=== PATIENT | male | born 1975 | race Caucasian/White ===

== ENCOUNTER 2017-01-19 15:38 | Emergency (ER) | payer MEDICARE, MEDICAID ==
[~2017-01-19] VITALS: Ht 170.2 cm; Wt 84.0 kg
[~2017-01-19 15:38] MED LIST: ALBUTEROL; FLUT1DIS3 IH
[2017-01-19 18:02] VITALS: BP 120/82
== END 2017-01-19 19:15 | disposition home or self-care (01) ==
LOC: ER 18:25
DX: S61.210A Laceration without foreign body of right index finger without damage to nail, initial encounter (principal); W26.0XXA Contact with knife, initial encounter; Y93.G1 Activity, food preparation and clean up; Y92.090 Kitchen in other non-institutional residence as the place of occurrence of the external cause
CPT/HCPCS: 73130; 99284

== ENCOUNTER 2021-03-30 15:07 | Emergency (ER) | payer MEDICARE, MEDICAID ==
[~2021-03-30] VITALS: Ht 172.7 cm; Wt 91.0 kg
[2021-03-30 16:48] LABS: BASOPHILS % 1.5 % (0.0-2.0); EOSINOPHILS % 6.2 % (0.0-5.0); HEMATOCRIT. 47.5 % (42.0-52.0); HEMOGLOBIN. 15.7 g/dL (14.0-18.0); LYMPHOCYTES % 25.8 % (20.0-50.0); MEAN CORPUSCULAR HEMOGLOBIN 28.7 pg (28.0-32.0); MEAN CORPUSCULAR VOLUME 87.2 fL (80.0-94.0); MEAN PLATELET VOLUME 8.6 fl (7.4-10.4); MONOCYTES % 8.3 % (2.0-8.0); NEUTROPHILS % 58.2 % (40.0-76.0); PLATELET 312 x1000/uL (130-400); RED BLOOD CELL COUNT 5.45 mill/uL (4.7-6.1); RED CELL DISTRIBUTION WIDTH 14.3 % (11.6-14.6)
[2021-03-30 16:50] LABS: CHLORIDE 107 mEq/L (98-107)
[2021-03-30] MEDS ORDERED: LISINOPRIL 5MG TABLET PO ONE (18:45)
[2021-03-30] MEDS ORDERED: LISI-186 MT (20:12)
[2021-03-31] MEDS ORDERED: LISINOPRIL 5MG TABLET PO ONE (09:45)
[2021-03-31] MEDS ORDERED: ACETAMINOPHEN 325MG TABLET PO ONE (14:15)
[2021-03-31 14:37] VITALS: BP 140/99
== END 2021-03-31 15:08 | disposition home or self-care (01) ==
LOC: ER 15:07
DX: I10 Essential (primary) hypertension (principal); H54.7 Unspecified visual loss; G40.909 Epilepsy, unspecified, not intractable, without status epilepticus; J45.909 Unspecified asthma, uncomplicated; Z87.820 Personal history of traumatic brain injury
CPT/HCPCS: 36415; 80053; 85025; 99285

== ENCOUNTER 2021-04-06 14:15 | Emergency (ER) | payer MEDICARE, MEDICAID ==
[~2021-04-06] VITALS: Ht 172.7 cm; Wt 78.0 kg
[~2021-04-06 14:15] MED LIST changes: +LISI-186 MT
[2021-04-06] MEDS ORDERED: ACETAMINOPHEN 325MG TABLET PO STA (14:39)
[2021-04-06] MEDS ORDERED: SODIUM CHLORIDE 0.9% 1,000 ML IV ONE (14:45)
[2021-04-06 15:25] LABS: BASOPHILS % 2.1 % (0.0-2.0); EOSINOPHILS % 5.2 % (0.0-5.0); HEMATOCRIT. 43.3 % (42.0-52.0); HEMOGLOBIN. 14.1 g/dL (14.0-18.0); LYMPHOCYTES % 22.4 % (20.0-50.0); MEAN CORPUSCULAR HEMOGLOBIN 28.3 pg (28.0-32.0); MEAN CORPUSCULAR VOLUME 86.5 fL (80.0-94.0); MEAN PLATELET VOLUME 8.9 fl (7.4-10.4); MONOCYTES % 11.8 % (2.0-8.0); NEUTROPHILS % 58.5 % (40.0-76.0); PLATELET 331 x1000/uL (130-400); RED CELL DISTRIBUTION WIDTH 14.1 % (11.6-14.6)
[2021-04-06 15:30] LABS: CHLORIDE 110 mEq/L (98-107)
[2021-04-06 17:19] LABS: CLARITY URINE CLEAR (CLEAR); COLOR URINE YELLOW (YELLOW); KETONES URINE NEGATIVE (NEGATIVE); LEUKOCYTE ESTERASE URINE NEGATIVE (NEGATIVE); NITRITE URINE NEGATIVE (NEGATIVE); OCCULT BLOOD URINE NEGATIVE (NEGATIVE); PROTEIN URINE 2+ (NEGATIVE); UROBILINOGEN URINE 0.2 E.U./dL (0.2-1.0)
[2021-04-06] MEDS ORDERED: METOCLOPRAMIDE HCL 10MG/2ML VIAL IV ONE (18:30)
[2021-04-06] MEDS ORDERED: KETOROLAC 30MG/ML VIAL IV ONE (18:30)
[2021-04-06] MEDS ORDERED: TOPUD PO (19:38)
[2021-04-06] MEDS ORDERED: IBUP-2028 MT (19:38)
[2021-04-06 19:48] VITALS: BP 150/98
== END 2021-04-06 19:56 | disposition home or self-care (01) ==
LOC: ER 14:26
DX: R51.9 Headache, unspecified (principal); I10 Essential (primary) hypertension; J45.909 Unspecified asthma, uncomplicated; Z86.59 Personal history of other mental and behavioral disorders
CPT/HCPCS: 36415; 70450; 80053; 81003; 85025; 96361; 96374; 96375; 99284; J1885; J2765; J7030

== ENCOUNTER 2023-09-29 01:15 | Emergency (ER) | payer OTHER, MEDICAID, MEDICARE ==
[~2023-09-29] VITALS: Ht 185.4 cm; Wt 103.0 kg
[~2023-09-29 01:15] MED LIST changes: +IBUP-2028 MT; +TOPUD PO
[2023-09-29] MEDS ORDERED: ALBUTEROL (0.083%) 2.5MG/3ML NEB HHN STA (01:35)
[2023-09-29] MEDS ORDERED: IPRATROPIUM BROMIDE (0.02%) 0.5MG/2.5ML NEB HHN STA (01:35)
[2023-09-29] MEDS: ACETAMINOPHEN 325MG TABLET PO ONE (01:52)
[2023-09-29] MEDS: METHYLPREDNISOLONE SOD SUCC 125MG/2ML (ACT-O-VIAL) IV STA (02:01)
[2023-09-29] MEDS: SODIUM CHLORIDE 0.9% 1,000 ML IV ONE (02:01)
[2023-09-29] MEDS: GUAIFENESIN 600MG ER TABLET PO ONE (02:18)
[2023-09-29 02:26] LABS: BASOPHILS % 1.4 % (0.0-2.0); EOSINOPHILS % 4.9 % (0.0-5.0); HEMATOCRIT. 45.4 % (42.0-52.0); HEMOGLOBIN. 15.1 g/dL (14.0-18.0); LYMPHOCYTES % 16.4 % (20.0-50.0); MEAN CORPUSCULAR HGB CONC 33.4 g/dL (31.0-37.0); MEAN CORPUSCULAR VOLUME 86.8 fL (80.0-94.0); MEAN PLATELET VOLUME 8.3 fl (7.4-10.4); MONOCYTES % 13.1 % (2.0-8.0); NEUTROPHILS % 64.2 % (40.0-76.0); PLATELET 333 x1000/uL (130-400); RED BLOOD CELL COUNT 5.23 mill/uL (4.7-6.1); RED CELL DISTRIBUTION WIDTH 13.8 % (11.6-14.6); WHITE BLOOD COUNT 9.7 x1000/uL (4.5-11.0)
[2023-09-29 02:29] LABS: CHLORIDE 105 mEq/L (98-107); POTASSIUM 3.8 mEq/L (3.5-5.1); SODIUM 141 mEq/L (136-145)
[2023-09-29 02:30] LABS: CARBON DIOXIDE 28 mEq/L (21-32)
[2023-09-29 02:31] LABS: CALCIUM 9.8 mg/dL (8.7-10.4)
[2023-09-29 02:35] LABS: GLUCOSE 147 mg/dL (70-105)
[2023-09-29 02:36] LABS: UREA NITROGEN BLOOD 18 mg/dL (9-23)
[2023-09-29 04:16] VITALS: PULSE 108; RESP 18; O2SAT 94
[2023-09-29] MEDS: ALBUTEROL (0.083%) 2.5MG/3ML NEB HHN NR (04:16)
[2023-09-29] MEDS: IPRATROPIUM BROMIDE (0.02%) 0.5MG/2.5ML NEB HHN NR (04:17)
[2023-09-29 04:50] VITALS: BP 126/96; PULSE 101; RESP 17; TEMP 97.8
[2023-09-29] MEDS ORDERED: P20 MT (05:37)
[2023-09-29] MEDS ORDERED: ALBU6.7H15 INH (05:37)
[2023-09-29] MEDS ORDERED: GUAI600T26 MT (05:37)
== END 2023-09-29 05:47 | disposition home or self-care (01) ==
LOC: ER 01:15
DX: J44.1 Chronic obstructive pulmonary disease with (acute) exacerbation (principal); F17.200 Nicotine dependence, unspecified, uncomplicated; I10 Essential (primary) hypertension; E11.9 Type 2 diabetes mellitus without complications; Z20.822 Contact with and (suspected) exposure to COVID-19
CPT/HCPCS: 80048; 85025; 36415; 71045; 96361; 96374; 99284; 87426; J2930; J7030; J2919